=== PATIENT | female | born 1965 | race Caucasian/White ===

== ENCOUNTER 2018-10-06 12:33 | Emergency (ER) | payer BC, OTHER ==
[~2018-10-06] VITALS: Ht 160 cm; Wt 93.9 kg
[~2018-10-06 12:33] MED LIST: ADDERALL 20 MG20 MG PO; ARMOUR THYROID60 MG PO; ATENOLOL50 MG PO; NEURONTIN400 MG PO; OMEPRAZOLE40 MG PO; PRISTIQ ER50 MG PO; SIMVASTATIN20 MG PO; ZYPREXA5 MG PO
--- OUTSIDE RECORDS SUMMARY | 2018-10-06 12:37 | XMS REPORT | Continuity of Care Document ---
Author Author [facility] Interface Address Unknown Phone Unavailable Problems Problem Status Onset Date Classification Date Reported Comments Source ROUTINE Active 04/21/2018 [facility] SCREENING Active 03/21/2018 [facility] UNK Active 04/02/2015 [facility] 727.61 726.10 840.7 [id number]/[id number] 2 Active 04/02/2015 [facility] Bipolar Active Problem 08/30/2015 [facility] Chronic [facility] pain Active Problem 05/19/2018 [facility] GERD (<span ID="[id number]">Confirmed</span>) Active Problem 05/19/2018 [facility] Hypertension Active Problem 05/19/2018 [facility] Hypothyroid Active Problem 05/19/2018 [facility] Rotator cuff tear<sup>1</sup> Active Problem 05/19/2018 right [facility] RT RTC Active [facility] [place] RT SHOUDER SX 04/18/15 Active [facility] [place] RT SHOULDER SX 04/18/15 Active [facility] Medications Medication Details Route Status Patient Instructions Ordering Provider Order Date Source Dexamethasone 8 mg, Route: IVP, ONCE, Dosing Weight 84.091, kg, Start date: 04/18/15 16:25:00, Stop date: 04/18/15 16:25:00 Inactive 04/18/2015 [facility] Reglan 10 mg, Route: IVP, ONCE, Dosing Weight 84.091, kg, Start date: 04/18/15 16:24:00, Stop date: 04/18/15 16:24:00 Inactive 04/18/2015 [facility] Phenergan 6.25 mg, Route: IVPB, ONCE, Dosing Weight 84.091, kg, Start date: 04/18/15 15:48:00, Stop date: 04/18/15 15:48:00 Inactive 04/18/2015 [facility] Acetaminophen 325 MG / Hydrocodone Bitartrate 5 MG Oral Tablet [Felda 5/325] 1 tab, Route: PO, Drug Form: TAB, Dosing Weight 84.091, kg, Q4H, PRN Pain, Start date: 04/18/15 15:46:00, Duration: 30 day, Stop date: 05/18/15 15:45:00 Inactive 04/18/2015 [facility] Naloxone 0.04 mg, Route: IVP, Q2MIN, Dosing Weight 84.091, kg, PRN Narcotic Reversal, Start date: 04/18/15 15:46:00, Duration: 8 doses or times, Stop date: Limited # of times Inactive 04/18/2015 [facility] Flumazenil 0.2 mg, Route: IVP, PRN, Dosing Weight 84.091, kg, PRN Benzodiazepine Reversal, Initial dose, Start date: 04/18/15 15:46:00, Duration: 30 day, Stop date: 05/18/15 15:45:00 Inactive 04/18/2015 [facility] Meperidine 12.5 mg, Route: IVP, Q30Min, Dosing Weight 84.091, kg, PRN Other -See Comment, For shivering, Start date: 04/18/15 15:46:00, Duration: 2 doses or times, Stop date: Limited # of times Inactive 04/18/2015 [facility] Hydromorphone 0.5 mg, Route: IVP, Q5Min, Dosing Weight 84.091, kg, PRN Pain Score 7-10, Start date: 04/18/15 15:46:00, Duration: 4 doses or times, Stop date: Limited # of times Inactive 04/18/2015 [facility] Fentanyl 25 microgram, Route: IVP, Q5Min, Dosing Weight 84.091, kg, PRN Pain Score 4-6, Start date: 04/18/15 15:46:00, Duration: 4 doses or times, Stop date: Limited # of times Inactive 04/18/2015 [facility] Ondansetron 4 mg, Route: IVP, ONCE, Dosing Weight 84.091, kg, PRN Nausea & Vomiting, Start date: 04/18/15 15:46:00 Inactive 04/18/2015 [facility] Acetaminophen 1,000 mg, Route: IVPB, Drug form: INJ, ONCE, Dosing Weight 84.091, kg, PRN Pain Score 1-3, Start date: 04/18/15 15:46:00, Duration: 1 doses or times, Stop date: Limited # of times Inactive 04/18/2015 [facility] Acetaminophen 325 MG / Oxycodone Hydrochloride 5 MG Oral Tablet [Percocet 5/325] 2 tab, Route: PO, Drug Form: TAB, Dosing Weight 84.091, kg, Q4H, PRN Pain Score 1-5, Start date: 04/18/15 15:00:00, Duration: 30 day, Stop date: 05/18/15 14:59:00Notes: Do not exceed 4gm/day of acetaminophen. (Same as: Percocet-5/325) Inactive 04/18/2015 [facility] Zofran 4 mg, 2 mL, Route: IV, Drug form: INJ, Q8H, Dosing Weight 84.091, kg, PRN Nausea, Start date: 04/18/15 15:00:00, Duration: 30 day, Stop date: 05/18/15 14:59:00Notes: (Same as: Zofran) MEDICATION WASTE Product Size: 4 mg Product Wasted: __0_ mg Inactive 04/18/2015 [facility] Morphine 2 mg, 1 mL, Route: IVP, Drug form: INJ, Q3H, Dosing Weight 84.091, kg, PRN Pain Score 1-3, Start date: 04/18/15 15:00:00, Duration: 30 day, Stop date: 05/18/15 14:59:00Notes: (Same as:MORPhine Sulfate) Inactive 04/18/2015 [facility] ropivacaine Dosing: Per Nerve Block Dosing Order, Route: NERVE BLOCK, Start date: 04/18/15 14:20:00 400 mL, Dosing Weight 84.091, kg, Duration: 30 day, Stop date: 05/18/15 14:19:00 Inactive 04/18/2015 [facility] Ancef 2 gm, Route: IVPB, ONCE, Dosing Weight 84.091, kg, Start date: 04/18/15 10:03:00, Duration: 1 doses or times, Stop date: 04/18/15 10:03:00 Inactive 04/18/2015 [facility] Calcium Chloride 0.0014 MEQ/ML / Potassium Chloride 0.004 MEQ/ML / Sodium Chloride 0.103 MEQ/ML / Sodium Lactate 0.028 MEQ/ML Injectable Solution 1,000 mL, Rate: 25 ml/hr, Infuse over: 40 hr, Route: IV, Dosing Weight 84.091 kg, Total Volume: 1,000, Start date: 04/18/15 9:57:00, Duration: 30 day, Stop date: 05/18/15 9:56:00 Inactive 04/18/2015 [facility] Atenolol 50 MG Oral Tablet 50 mg=1 tab, PO, Bedtime, # 30 tab, 0 Refill(s) Active 04/15/2015 [facility] simvastatin 20 mg oral tablet 20 mg=1 tab, PO, Bedtime, # 30 tab, 0 Refill(s) Active 04/15/2015 [facility] olanzapine 15 MG Oral Tablet [Zyprexa] 15 mg=1 tab, PO, Daily, # 30 tab, 0 Refill(s) Active 04/15/2015 [facility] omeprazole 40 mg oral delayed release capsule 40 mg=1 cap, PO, Daily, # 30 cap, 0 Refill(s) Active 04/15/2015 [facility] 24 HR Desvenlafaxine 50 MG Extended Release Tablet [Pristiq] 50 mg=1 tab, PO, Daily, # 30 tab, 0 Refill(s) Active 04/15/2015 [facility] Levothyroxine Sodium 0.137 MG Oral Tablet [Synthroid] 137 microgram=1 tab, PO, Daily, # 30 tab, 0 Refill(s) Active 04/15/2015 [facility] Amphetamine aspartate 5 MG / Amphetamine Sulfate 5 MG / Dextroamphetamine saccharate 5 MG / Dextroamphetamine Sulfate 5 MG Oral Tablet [Adderall] 20 mg=1 tab, PO, Daily, 0 Refill(s) Active 04/15/2015 [facility] Allergies, Adverse Reactions, Alerts Substance Category Reaction Severity Reaction type Status Date Reported Comments Source codeine Assertion Drug allergy Active [facility] Immunizations Immunization Date Given Site Status Last Updated Comments Source Results Order Name Results Value Reference Range Date Interpretation Comments Source Breast Mammo Scrn JAMI incl CAD MA Breast Mammo Scrn JAMI incl CAD MA BILATERAL DIGITAL SCREENING MAMMOGRAM WITH CAD: 05/16/2018 CLINICAL: /Screen. Current study was evaluated with a Computer Aided Detection (CAD) system. COMPARISON:Exam is read without the benefit of comparison films. Patient is unsure and/or cannot remember where and/or when her prior exam(s) was performed. TECHNIQUE: Mammographic views were obtained using digital acquisition. [employer] Version 1.3 was utilized for computer aided detection. FINDINGS: The tissue of both breasts is heterogeneously dense, which could obscure detection of small masses. Benign appearing densities are noted in both breasts. There are benign calcifications and lymph nodes in the right breast. There also are benign calcifications in the left breast. No significant masses, calcifications, or other findings are seen in either breast. IMPRESSION: BENIGN RECOMMENDATION:There is no mammographic evidence of malignancy. A 1 year screening mammogram is recommended.(05/17/2019) SUMMARY: Prior mammograms would be of added benefit to document mcc stability. This aids in establishing benignity. The patient should make additional efforts to locate her prior exams. An addendum will be made if additional films are provided. As the patient has dense breast parenchyma with scattered densities, this could obscure additional abnormalities. The patient would likely benefit from a supplemental screening test such as bilateral ultrasound. This should be discussed with the patient by the referring physician. This exam was interpreted at [id number] for [facility]. Prerna Kee M.D. jt/:05/17/2018 07:48:54 Ship Wirer(s): Melodie Peter [facility] letter sent: BI-RADS 1/2 Dense Mammogram BI-RADS: 2 Benign 05/16/2018 - - Read by: Prerna Kee MD Dictated Date/time: 05/17/18 07:48 Electronically Signed by: Prerna Kee MD 05/17/18 07:48 FINAL REPORT [facility] Bone Density Scan Bone Density Scan BONE DENSITY: HISTORY: Osteoporosis. TECHNIQUE: Dual energy x-ray absorptiometry (DEXA) was done over the lumbar spine and left hip on a [employer] SL scanner. FINDINGS: The total T-score over the lumbar spine is -0.1, consistent with normal bone density. The global T-score over the left hip is 0.6, consistent with normal bone density. The focal T-score over the left femoral neck is -0.7, consistent with normal bone density. The BMD is 0.776 g/sq cm. IMPRESSION: 1. Normal bone density of the lumbar spine. 2. Normal global bone density of the left hip. 3. Normal bone density of the left femoral neck. FOR YOUR INFORMATION: The World Health Organization has established that OSTEOPOROSIS occurs at -2.5 or more standard deviations below peak bone mass (T-score). OSTEOPENIA occurs at -1.0 to -2.5 standard deviations (T-score) below peak bone mass. [id number] 05/16/2018 - - Read by: Nito Reynoso MD Dictated Date/time: 05/16/18 14:14 Electronically Signed by: Nito Reynoso MD 05/16/18 14:15 FINAL REPORT [facility] URINE CHEM U Preg Negative (04/18/15 8:55 AM) Negative 04/18/2015 [facility] Vital Signs Vital Sign Value Date Comments Source Systolic (mm Hg) 113 04/18/2015 [facility] Diastolic (mm Hg) 64 04/18/2015 [facility] Respitory Rate 18 04/18/2015 [facility] Respitory Rate 16 04/18/2015 [facility] Systolic (mm Hg) 120 04/18/2015 [facility] Diastolic (mm Hg) 70 04/18/2015 [facility] Systolic (mm Hg) 120 04/18/2015 [facility] Diastolic (mm Hg) 70 04/18/2015 [facility] Respitory Rate 20 04/18/2015 [facility] Temperature Oral (F) 98.2 F 04/15/2015 [facility] Heart Rate 77 04/15/2015 [facility] Weight 84.091 04/15/2015 [facility] BMI Calculated 32.84 04/15/2015 [facility] Height 160.02 cm 04/15/2015 [facility] Encounters Location Location Details Encounter Type Encounter Number Reason For Visit Attending Provider ADM Date DC Date Status Source [facility] [id number] Adan Frederick 08/23/2014 09/22/2014 [facility] [place] [id number] Adan Frederick 10/04/2014 11/03/2014 [facility] OBS Day Surgery [id number] Nito Vazquez Jr 04/18/2015 04/18/2015 [facility] [place] [facility] [id number] Nito Vazquez Jr 04/22/2015 05/22/2015 [facility] [id number] Nito Vazquez Jr 05/23/2015 06/22/2015 [facility] [place] [id number] Nito Vazquez Jr 07/02/2015 08/01/2015 [facility] [place] [id number] Nito Vazquez Jr 08/15/2015 08/27/2015 [facility] Outpatient [id number] Mariann Matos 05/16/2018 05/17/2018 [facility] Procedures Procedure Code Date Perfomer Comments Source Bilateral tubal ligation [id number] [facility] Excision of cyst [id number] [facility] Bilateral tubal ligation [id number] [facility] Excision of cyst [id number] [facility]
--- OUTSIDE RECORDS SUMMARY | 2018-10-06 12:37 | XMS REPORT | Summary of Care ---
Author Author [facility] Address Unknown Phone Unavailable Encounter HQ Raghav_wendi(FIN) [id number] Date(s): 05/23/15 - 06/21/15 [facility] Discharge Disposition: Home Attending Physician: Nito Dozier MD Vital Signs No data available for this section Problem List Condition Effective Dates Status Health Status Informant Bipolar(Confirmed) Active Chronic back Active pain(Confirmed) GERD Active (gastroesophageal reflux disease)(Confirmed) Hypertension(Confirm Active ed) Hypothyroid(Confirme Active d) Rotator cuff Active tear(Confirmed)1 1right Allergies, Adverse Reactions, Alerts Substance Reaction Severity Status codeine Active Medications No data available for this section Results No data available for this section Immunizations No data available for this section Procedures Procedure Date Related Diagnosis Body Site Bilateral tubal ligation Excision of cyst Social History Social History Type Response Alcohol Current, Type Wine. Frequency: Daily. Previous treatment: None. Alcohol use interferes with work or home: No. Drinks more than intended: No. Others hurt by drinking: No. Household alcohol concerns: No.1 Smoking Status Former smoker; Type: Cigarettes; Previous treatment: None; Ready to change: Yes; Exposure to Tobacco Smoke None; Cigarette Smoking Last 365 Days No; Reg Smoking Cessation Counseling No 11 glass of wine daily Assessment and Plan No data available for this section
--- OUTSIDE RECORDS SUMMARY | 2018-10-06 12:37 | XMS REPORT | Summary of Care ---
Author Organization Unknown Address Unknown Phone Unavailable Encounter HQ Encntr_alias([facility]) [id number] Date(s): 10/04/14 - 11/02/14 [facility] [place] Discharge Disposition: Home Physician Attending: Adan Frederick MD Reason for Visit RT RTC Problem List No data available for this section Allergies, Adverse Reactions, Alerts No data available for this section Medications No data available for this section Medications Administered During Your Visit No data available for this section Immunizations No data available for this section
--- OUTSIDE RECORDS SUMMARY | 2018-10-06 12:38 | XMS REPORT | Summary of Care ---
Author Author [facility] Address Unknown Phone Unavailable Encounter HQ Cobyntr_wendi(FIN) [id number] Date(s): 08/15/15 - 08/27/15 [facility] Discharge Disposition: Home Attending Physician: Nito Dozier [...]
--- OUTSIDE RECORDS SUMMARY | 2018-10-06 12:38 | XMS REPORT | Summary of Care ---
Author Organization Unknown Address Unknown Phone Unavailable Encounter DEJAN Wallace(MIKE) [id number] Date(s): 04/18/15 - 04/18/15 [facility] [address] [place] [address]- [phone] Discharge Disposition: Home Physician Attending: Nito Dozier MD Physician_Referring: Nito Dozier MD Vital Signs 1 2 3 Most recent to oldest [Reference Range]: 160.02 cm (04/15/15 5:29 PM) Height 98.2 DegF (04/15/15 5:29 PM) Temperature Oral [96.4-99.1 DegF] 113/64 mmHg (04/18/15 5:15 PM) 120/70 mmHg (04/18/15 5:00 PM) 120/70 mmHg (04/18/15 4:45 PM) Blood Pressure [90-140/60-90 mmHg] 18 BRMIN (04/18/15 5:15 PM) 16 BRMIN (04/18/15 5:00 PM) 20 BRMIN (04/18/15 4:45 PM) Respiratory Rate [14-20 BRMIN] 77 bpm (04/15/15 5:29 PM) Peripheral Pulse Rate [60-100 bpm] 84.091 kg (04/15/15 5:29 PM) Weight 32.84 m2 (04/15/15 5:29 PM) Body Mass Index Problem List Condition Effective Dates Status Health Status Informant Bipolar(Confirmed) Active Chronic back Active pain(Confirmed) GERD Active (gastroesophageal reflux disease)(Confirmed) Hypertension(Confirm Active ed) Hypothyroid(Confirme Active d) Rotator cuff Active tear(Confirmed)1 1right Allergies, Adverse Reactions, Alerts Substance Reaction Severity Status codeine Active Medications acetaminophen 1,000 mg, Route: IVPB, Drug form: INJ, ONCE, Dosing Weight 84.091, kg, PRN Pain Score 1-3, Start date: 04/18/15 15:46:00, Duration: 1 doses or times, Stop date: Limited # of times Start Date: 04/18/15 Stop Date: 04/18/15 Status: Discontinued Adderall 20 mg oral tablet 20 mg=1 tab, PO, Daily, 0 Refill(s) Start Date: 04/15/15 Status: Ordered Ancef 2 gm, Route: IVPB, ONCE, Dosing Weight 84.091, kg, Start date: 04/18/15 10:03:00 , Duration: 1 doses or times, Stop date: 04/18/15 10:03:00 Start Date: 04/18/15 Stop Date: 04/18/15 Status: Completed atenolol 50 mg oral tablet 50 mg=1 tab, PO, Bedtime, # 30 tab, 0 Refill(s) Start Date: 04/15/15 Status: Ordered dexamethasone 8 mg, Route: IVP, ONCE, Dosing Weight 84.091, kg, Start date: 04/18/15 16:25:00, Stop date: 04/18/15 16:25:00 Start Date: 04/18/15 Stop Date: 04/18/15 Status: Completed fentaNYL 25 microgram, Route: IVP, Q5Min, Dosing Weight 84.091, kg, PRN Pain Score 4-6, S tart date: 04/18/15 15:46:00, Duration: 4 doses or times, Stop date: Limited # o f times Start Date: 04/18/15 Stop Date: 04/18/15 Status: Discontinued flumazenil 0.2 mg, Route: IVP, PRN, Dosing Weight 84.091, kg, PRN Benzodiazepine Reversal, Initial dose, Start date: 04/18/15 15:46:00, Duration: 30 day, Stop date: 15:45:00 Start Date: 04/18/15 Stop Date: 04/18/15 Status: Discontinued hydromorphone 0.5 mg, Route: IVP, Q5Min, Dosing Weight 84.091, kg, PRN Pain Score 7-10, Start date: 04/18/15 15:46:00, Duration: 4 doses or times, Stop date: Limited # of deny es Start Date: 04/18/15 Stop Date: 04/18/15 Status: Discontinued Lactated Ringers Injection IV 1000 mL 1,000 mL, Rate: 25 ml/hr, Infuse over: 40 hr, Route: IV, Dosing Weight 84.091 kg , Total Volume: 1,000, Start date: 04/18/15 9:57:00, Duration: 30 day, Stop date : 05/18/15 9:56:00 Start Date: 04/18/15 Stop Date: 04/18/15 Status: Discontinued meperidine 12.5 mg, Route: IVP, Q30Min, Dosing Weight 84.091, kg, PRN Other -See Comment, F or shivering, Start date: 04/18/15 15:46:00, Duration: 2 doses or times, Stop da te: Limited # of times Start Date: 04/18/15 Stop Date: 04/18/15 Status: Discontinued morphine Sulfate 2 mg, 1 mL, Route: IVP, Drug form: INJ, Q3H, Dosing Weight 84.091, kg, PRN Pain Score 1-3, Start date: 04/18/15 15:00:00, Duration: 30 day, Stop date: 05/18/15 14:59:00 Notes: (Same as:MORPhine Sulfate) Start Date: 04/18/15 Stop Date: 04/18/15 Status: Discontinued naloxone 0.04 mg, Route: IVP, Q2MIN, Dosing Weight 84.091, kg, PRN Narcotic Reversal, Sta rt date: 04/18/15 15:46:00, Duration: 8 doses or times, Stop date: Limited # of times Start Date: 04/18/15 Stop Date: 04/18/15 Status: Discontinued [place] 5/325 oral tablet 1 tab, Route: PO, Drug Form: TAB, Dosing Weight 84.091, kg, Q4H, PRN Pain, Start date: 04/18/15 15:46:00, Duration: 30 day, Stop date: 05/18/15 15:45:00 Start Date: 04/18/15 Stop Date: 04/18/15 Status: Discontinued omeprazole 40 mg oral delayed release capsule 40 mg=1 cap, PO, Daily, # 30 cap, 0 Refill(s) Start Date: 04/15/15 Status: Ordered ondansetron 4 mg, Route: IVP, ONCE, Dosing Weight 84.091, kg, PRN Nausea & Vomiting, Start date: 04/18/15 15:46:00 Start Date: 04/18/15 Stop Date: 04/18/15 Status: Discontinued Percocet 5/325 oral tablet 2 tab, Route: PO, Drug Form: TAB, Dosing Weight 84.091, kg, Q4H, PRN Pain Score 1-5, Start date: 04/18/15 15:00:00, Duration: 30 day, Stop date: 05/18/15 14:59: 00 Notes: Do not exceed 4gm/day of acetaminophen. (Same as: Percocet-5/325) Start Date: 04/18/15 Stop Date: 04/18/15 Status: Discontinued Phenergan 6.25 mg, Route: IVPB, ONCE, Dosing Weight 84.091, kg, Start date: 04/18/15 15:48 :00, Stop date: 04/18/15 15:48:00 Start Date: 04/18/15 Stop Date: 04/18/15 Status: Completed Pristiq 50 mg oral tablet, extended release 50 mg=1 tab, PO, Daily, # 30 tab, 0 Refill(s) Start Date: 04/15/15 Status: Ordered Reglan 10 mg, Route: IVP, ONCE, Dosing Weight 84.091, kg, Start date: 04/18/15 16:24:00 , Stop date: 04/18/15 16:24:00 Start Date: 04/18/15 Stop Date: 04/18/15 Status: Completed ropivacaine 0.2% in NS - site 1 400 mL Dosing: Per Nerve Block Dosing Order, Route: NERVE BLOCK, Start date: 04/18/15 1 4:20:00 400 mL, Dosing Weight 84.091, kg, Duration: 30 day, Stop date: 05/18/15 14:19:00 Start Date: 04/18/15 Stop Date: 04/18/15 Status: Discontinued simvastatin 20 mg oral tablet 20 mg=1 tab, PO, Bedtime, # 30 tab, 0 Refill(s) Start Date: 04/15/15 Status: Ordered Synthroid 137 mcg (0.137 mg) oral tablet 137 microgram=1 tab, PO, Daily, # 30 tab, 0 Refill(s) Start Date: 04/15/15 Status: Ordered Zofran 4 mg, 2 mL, Route: IV, Drug form: INJ, Q8H, Dosing Weight 84.091, kg, PRN Nausea , Start date: 04/18/15 15:00:00, Duration: 30 day, Stop date: 05/18/15 14:59:00 Notes: (Same as: Zofran) MEDICATION WASTE Product Size: 4 mgProduct Was hudson: __0_ mg Start Date: 04/18/15 Stop Date: 04/18/15 Status: Discontinued ZyPREXA 15 mg oral tablet 15 mg=1 tab, PO, Daily, # 30 tab, 0 Refill(s) Start Date: 04/15/15 Status: Ordered Results URINE CHEM Most recent to 1 oldest [Reference Range]: U Preg [Negative] Negative (04/18/15 8:55 AM) Immunizations No data available for this section [...]
--- OUTSIDE RECORDS SUMMARY | 2018-10-06 12:38 | XMS REPORT | Summary of Care ---
Author Organization Unknown Address Unknown Phone Unavailable Encounter HQ [place](MIKE) [id number] Date(s): 04/22/15 - 05/21/15 [facility] Discharge Disposition: Home Physician Attending: Nito Dozier MD Vital Signs No data [...]
--- OUTSIDE RECORDS SUMMARY | 2018-10-06 12:38 | XMS REPORT | Summary of Care ---
Author Author [facility] Organization [facility] Address Unknown Phone Unavailable Encounter HQ Raghav_wendi(FIN) [id number] Date(s): 05/16/18 - 05/16/18 [facility] [address] [place] [address]- Discharge Disposition: Home or Self Care Attending Physician: Mariann Matos MD Referring Physician: Mariann Matos MD Vital Signs No data available for this section Problem List Condition Effective Dates Status Health Status Informant Chronic back Active pain(Confirmed) GERD Active (gastroesophageal reflux disease)(Confirmed) Hypertension(Confirm Active ed) Hypothyroid(Confirme Active d) Rotator cuff Active tear(Confirmed)1 1right Allergies, Adverse Reactions, Alerts Substance Reaction Severity Status codeine Active Medications No data available for this section Results No data available for this section Immunizations No data available for this section Procedures Procedure Date Related Diagnosis Body Site Status Bilateral tubal ligation Completed Excision of cyst Completed Social History Social History Type Response Alcohol [...] Days No; Reg Smoking Cessation Counseling No entered on: 04/18/15 11 glass of wine daily Assessment and Plan No data available for this section
--- OUTSIDE RECORDS SUMMARY | 2018-10-06 12:38 | XMS REPORT | Summary of Care ---
Author Author [facility] Address Unknown Phone Unavailable Encounter HQ Cobyntr_wendi(FIN) [id number] Date(s): 07/02/15 - 07/31/15 [facility] Discharge Disposition: Home Attending Physician: Nito Dozier [...]
[2018-10-06] MEDS ORDERED: ASPIRIN 81 MG CHEW TAB PO ONE (13:00)
[2018-10-06] MEDS ORDERED: METHYLPREDNISOLONE SOD SUCC 125 MG/2ML VIAL IV NR (13:15)
[2018-10-06] MEDS ORDERED: ALBUTEROL/IPRATROPIUM 3 ML NEB NEB ONE (13:15)
[2018-10-06 13:20] LABS: BASOPHILS % 0.3 % (0.0-1.0); EOSINOPHILS # (AUTO) 0.1 (0.0-0.4); HEMATOCRIT 36.6 % (34.2-44.1); HEMOGLOBIN 12.5 g/dL (12.0-16.0); LYMPHOCYTES # (AUTO) 0.8 (1.0-3.2); LYMPHOCYTES % 9.9 % (18.0-39.1); MEAN CORPUSCULAR HEMOGLOBIN 31.7 pg (28-32); MEAN CORPUSCULAR HGB CONC 34.2 g/dL (31-35); MEAN CORPUSCULAR VOLUME 92.9 fL (81-99); MONOCYTES # (AUTO) 0.7 (0.2-0.8); MONOCYTES % 9.4 % (4.4-11.3); NEUTROPHILS # (AUTO) 6.1 (2.1-6.9); PLATELET COUNT 193 x10e3/uL (140-360); RED BLOOD COUNT 3.94 x10e6/uL (3.6-5.1); RED CELL DISTRIBUTION WIDTH 14.5 % (11.7-14.4)
[2018-10-06 13:28] LABS: INR 0.84; PROTHROMBIN TIME 12.3 seconds (11.9-14.5)
[2018-10-06 13:29] LABS: PARTIAL THROMBOPLASTIN TIME 37.1 seconds (23.8-35.5)
[2018-10-06 13:43] LABS: ALANINE AMINOTRANSFERASE 29 IU/L (0-55); ALBUMIN 3.9 g/dL (3.5-5.0); ALBUMIN/GLOBULIN RATIO 1.1 (0.8-2.0); ALKALINE PHOSPHATASE 104 IU/L (40-150); ANION GAP 16.8 mmol/L (8-16); BLOOD UREA NITROGEN 11 mg/dL (7-26); BUN/CREATININE RATIO 13 (6-25); CALCIUM 9.7 mg/dL (8.4-10.2); CARBON DIOXIDE 23 mmol/L (22-29); CHLORIDE 102 mmol/L (98-107); CREATINE KINASE 38 IU/L (29-168); CREATININE, SERUM 0.86 mg/dL (0.57-1.11); EST GLOMERULAR FILTRATION RATE > 60 ML/MIN (60-); GLUCOSE 118 mg/dL (74-118); POTASSIUM 3.8 mmol/L (3.5-5.1); SODIUM 138 mmol/L (136-145)
[2018-10-06 13:53] LABS: INFLUENZAE A&B ANTIGEN (RAPID) NEGATIVE (NEGATIVE); STREPTOCOCCUS GRP A ANTIGEN NEGATIVE (NEGATIVE)
--- NOTE | 2018-10-06 14:31 | Diagnostic Imaging Report ---
EXAMINATION: PA and lateral views of the chest. COMPARISON: None CLINICAL HISTORY: Cough, shortness of breath DISCUSSION: Lines/tubes: None. Lungs: The lungs are well inflated and clear. No pneumonia or pulmonary edema. Pleura: No pleural effusion or pneumothorax. Heart and mediastinum: The cardiomediastinal silhouette is normal. Bones and soft tissues: No acute bony abnormalities. IMPRESSION: No acute cardiopulmonary abnormalities. Signed by: Dr. Geovany Hollingsworth M.D. on 10/06/2018 2:28 PM
[2018-10-06 15:29] LABS: BACTERIA,URINE MANY /HPF; BILIRUBIN,URINE NEGATIVE (NEGATIVE); CLARITY,URINE SL CLOUDY (CLEAR); COLOR,URINE YELLOW (YELLOW); KETONES,URINE NEGATIVE (NEGATIVE); LEUKOCYTE ESTERASE ,URINE NEGATIVE (NEGATIVE); NITRITE,URINE NEGATIVE (NEGATIVE); PROTEIN,URINE DIPSTICK NEGATIVE (NEGATIVE); URINE UROBILINOGEN 0.2 mg/dL (0.2 - 1)
[2018-10-06] MEDS ORDERED: SODIUM CHLORIDE 0.9% 1000ML 1,000 ML IV STA (15:59)
[2018-10-06] MEDS ORDERED: CEFTRIAXONE SOD 1 GM VIAL IM ONE (16:00)
[2018-10-06] MEDS ORDERED: LEVALBUTEROL HCL SOLN NEBU 1.25 MG/3 ML NEB INH ONE (16:00)
[2018-10-06] MEDS ORDERED: IPRATROPIUM BROMIDE 0.02% 2.5 ML NEB NEB ONE (16:00)
[2018-10-06 18:05] VITALS: BP 133/76
== END 2018-10-06 18:17 | disposition home or self-care (01) ==
LOC: ER 12:33
DX: R06.00 Dyspnea, unspecified (principal); R05 Cough; J20.9 Acute bronchitis, unspecified; I10 Essential (primary) hypertension
CPT/HCPCS: 36415; 71046; 80053; 81001; 82550; 82553; 83518; 83880; 84484; 85025; 85610; 85730; 87070; 87400; 93005; 94640 ×2; 99284; J0696; J2930; J7030

== ENCOUNTER → 2020-07-03 | Day surgery (SDC) | payer OTHER ==
[2020-06-27 17:00] LABS: BASOPHILS % 0.7 % (0.0-1.0); EOSINOPHILS # (AUTO) 0.2 (0.0-0.4); EOSINOPHILS % 3.2 % (0.0-6.0); HEMATOCRIT 35.9 % (34.2-44.1); HEMOGLOBIN 11.9 g/dL (12.0-16.0); LYMPHOCYTES # (AUTO) 1.9 (1.0-3.2); LYMPHOCYTES % 31.5 % (18.0-39.1); MEAN CORPUSCULAR HEMOGLOBIN 29.2 pg (28-32); MEAN CORPUSCULAR HGB CONC 33.1 g/dL (31-35); MEAN CORPUSCULAR VOLUME 88.2 fL (81-99); MONOCYTES % 17.4 % (4.4-11.3); NEUTROPHILS # (AUTO) 2.8 (2.1-6.9); PLATELET COUNT 240 x10e3/uL (140-360); RED BLOOD COUNT 4.07 x10e6/uL (3.6-5.1); RED CELL DISTRIBUTION WIDTH 15.3 % (11.7-14.4)
[2020-06-27 17:16] LABS: ANION GAP 14.1 mmol/L (8-16); BLOOD UREA NITROGEN 15 mg/dL (7-26); BUN/CREATININE RATIO 17 (6-25); CALCIUM 9.4 mg/dL (8.4-10.2); CARBON DIOXIDE 26 mmol/L (22-29); CHLORIDE 105 mmol/L (98-107); CREATININE, SERUM 0.88 mg/dL (0.57-1.11); EST GLOMERULAR FILTRATION RATE > 60 ML/MIN (60-); GLUCOSE 89 mg/dL (74-118); POTASSIUM 4.1 mmol/L (3.5-5.1); SODIUM 141 mmol/L (136-145)
[~2020-07-03] MED LIST changes: +ATROPINE SULFATE 1 MG/ML VIAL ONE; +CANDESARTAN-HC1 EAC2 PO; +CEFAZOLIN SOD 1 GM/NS 50ML 100 ML IV ONE; +DEXAMETHASONE PHOS 4MG/ML 5ML MULTIDOSE VIAL ONE; +EPINEPHRINE 1 MG/ML 30ML VIAL ONE; +FENTANYL CITRATE/PF 100MCG/2 ML INJ ONE; +HYDROCODONE/APAP 10MG-325MG TAB ONE; +KETOROLAC TROMETHAMINE 30 MG/ML VIAL ONE; +LIDOCAINE 2% /EPINEPHRINE 20 ML SDV INJ ONE; +LIDOCAINE HCL 2% LOCAL INJ 5 ML SDV VIAL INJ ONE; +MIDAZOLAM HCL 2 MG/2 ML VIAL ONE; +NEOSTIGMINE 1 MG/ML 10ML VIAL ONE; +ONDANSETRON HCL INJ 2MG/ML 2ML 2 MG/ML VIAL ONE; +PHENYLEPHRINE HCL 1% 10 MG/ML VIAL ONE; +PROPOFOL IV EMULSION 10 MG/ML 20 ML VIAL ONE; +ROCURONIUM BROMIDE 10 MG/ML 5ML VIAL IV ONE; +ROPIVACAINE 0.5% 5 MG/ML 30 ML SDV ONE; +SEVOFLURANE INHAL SOLN 250 ML PEN BTL ONE; +SYNTHROID125 MCG PO
[2020-07-03 08:40] VITALS: BP 115/71
--- NOTE | 2020-07-03 13:23 | Operative Report ---
DATE OF PROCEDURE: 07/03/2020 SURGEON: MARK BLANCO MD LOCATION: Place of surgery is [facility]. HISTORY: Ms. Franco is a 54-year-old female who I have been following in the [facility] for ongoing pain of her right shoulder secondary to underlying right shoulder labral tear, rotator cuff tear along with shoulder impingement, AC arthrosis. The patient had elected to forgo any further conservative treatment and proceed on with a diagnostic arthroscopy of her right shoulder. The risks and benefits of surgery have been outlined to her, consisting but not limited to the following: Infection, blood loss, nerve, blood vessel, tendon injury, DVT, ongoing pain. The patient was seen and identified in the preop holding area. The right shoulder was marked by myself. She was given a preoperative regional block, interscalene block per anesthesia and then brought back to the operative suite. Time-out was taken for Ms. Gwendolyn Franco for diagnostic arthroscopy of her right shoulder. All were in agreement including nursing staff, anesthesia and myself. The patient was then given a successful general intubation anesthetic and then placed in the beach chair position with the right shoulder fully exposed. The right shoulder was then sterilely prepped and draped in usual standard fashion. The shoulder was inflated with 30 mL of sterile saline. A 15 Bard-Wayne blade was used to make the initial posterior portal. A blunt trocar was inserted. Upon examination of the anterior compartment, the patient has significant degenerative labral tear from the 12 o'clock down to the 6 o'clock position. The patient had multiple rice loose bodies floating throughout ranging from 2 mm to as large as 5+, likely stemming from the typical surface of the glenoid and humeral head. She had moderate arthritic changes. An anterior working portal as well as a lateral portal was made to assist removal of the rice loose bodies which were removed using arthroscopic grasper and shaver. Upon this time, a 4.0 shaver was then used to debride the type 3 degenerative labral tear down to a stable rim. The patient's villonodular synovitis was also removed and resected using the 4.0 shaver removing the inflamed synovium. Examination of the posterior labrum shows some mild fraying. The labrum was debrided. villonodular synovectomy was also completed removing the villonodular synovitis. The rotator cuff tear was identified. There was a through and through tear with mild retraction. It is also noted that the patient had complete rupture of the biceps tendon. It was not inside the intra-articular joint. Examination of the subacromial space shows some marked arthrosis AC joint with impingement. Through the posterior and lateral portal, an arthroscopic subacromial decompression was carried out, i.e. acromioplasty removing the underlying type 2 spur and improving upon impingement. Attention was then turned to the AC arthrosis and the distal clavicle. The 4.0 shaver and bur were then also used to complete the arthroscopic distal clavicle resection i.e. Trever procedure. Copious irrigation was carried out at the subacromial joint space. All rice loose bodies were removed. Again, the rotator cuff tear was identified. It was marked arthroscopically. A small incision was made directly over the tear. Blunt dissection was carried down. The deltoid muscle was split. Retractors were placed in. Upon probing down to the anterior bicipital groove, I was able to use an Allis clamp tendon retriever and was able to retrieve the stump of the biceps tendon. Upon which time, one Ethibond suture was passed through in a locking stitch and 2 bony tunnels. The proximal biceps tenodesis was carried out close to junction of the bicipital groove. The biceps tenodesis was completed successfully. Attention then redirected back to the rotator cuff tear. One 6.5 Mitek helix anchor was deployed after the punch was completed. The two pairs of sutures were passed through the rotator cuff tendon and the tendon was reattached back to its bony insertion. Copious irrigation was carried out through the entire wound. First, second and final counts found to be correct. One Ethibond suture was then used to close the deep layer with 0 Vicryl, 2-0 Vicryl, skin reapproximated using bryan. The patient was placed in a shoulder abduction immobilizer and subsequently transferred to PACU after successful extubation in stable condition. PREOP DIAGNOSES: 1. Right shoulder labral tear. 2. Right shoulder rotator cuff tear. 3. Right shoulder impingement AC arthrosis. POSTOPERATIVE DIAGNOSES: 1. Right shoulder degenerative type 3 labral tear. 2. Villonodular synovitis of the right shoulder. 3. Multiple rice loose bodies of the right shoulder. 4. Complete rupture of the proximal biceps tendon of the right shoulder. 5. Rotator cuff tear of the right shoulder. 6. Right shoulder impingement, AC arthrosis. PROCEDURES: 1. Diagnostic arthroscopy of the right shoulder with a type 3 labral debridement. 2. Arthroscopic synovectomy for villonodular synovitis of the right shoulder. 3. Removal of rice and loose bodies of the right shoulder to the 5-6 mm in size. 4. Arthroscopic subacromial decompression i.e. acromioplasty. 5. Arthroscopic distal clavicle resection i.e. Trever procedure. 6. Proximal biceps tenodesis of the right proximal biceps tendon. 7. Right shoulder rotator cuff repair and reconstruction with the use of a Mitek 6.5 helix anchor. ANESTHESIA: Regional block with general intubation anesthetic. BLOOD LOSS: Less than 10 mL. SPECIMENS: Rice bodies, synovium, and cartilage. COMPLICATIONS: None. CONDITION: Stable to PACU. Intraoperative findings were as noted above along with moderate arthritic changes to the right shoulder. The patient was seen in PACU. Dressings were clean and dry. Capillary refills were brisk. The intraoperative findings were reviewed and discussed with her and discharge wound care instructions were given. She is discharged home with [place] as well as Valium to assist with spasms and Lunesta with sleep along with Keflex. The patient is to follow up with Orthopedics in 12 to 14 days. Discharge wound care instructions were also discussed with nursing staff. MD GIOVANA BARAJAS/GERTRUDE /[id number] DARRICK
== END | disposition home or self-care (01) ==
LOC: OR 05:00
PROVIDERS: ATTEND Orthopaedic Surgery
DX: M75.101 Unspecified rotator cuff tear or rupture of right shoulder, not specified as traumatic (principal); S43.431A Superior glenoid labrum lesion of right shoulder, initial encounter; S46.211A Strain of muscle, fascia and tendon of other parts of biceps, right arm, initial encounter; M19.011 Primary osteoarthritis, right shoulder; M24.011 Loose body in right shoulder; M75.91 Shoulder lesion, unspecified, right shoulder; G47.33 Obstructive sleep apnea (adult) (pediatric); M05.711 Rheumatoid arthritis with rheumatoid factor of right shoulder without organ or systems involvement; I10 Essential (primary) hypertension; E66.09 Other obesity due to excess calories; X58.XXXA Exposure to other specified factors, initial encounter; Z88.6 Allergy status to analgesic agent; Z01.810 Encounter for preprocedural cardiovascular examination; Z01.812 Encounter for preprocedural laboratory examination; Z11.59 Encounter for screening for other viral diseases; Z68.33 Body mass index [BMI] 33.0-33.9, adult
CPT/HCPCS: 23410; 29824; 29828; 36415; 80048; 85025; 93005; C1713; J0461; J0690; J1885; J2001 ×2; J2250; J2370; J2405; J2704; J2710; J2795; J3010; U0002

== ENCOUNTER → 2022-12-17 | Day surgery (SDC) | payer BC, OTHER ==
[2022-12-15 08:55] LABS: BASOPHILS # (AUTO) 0.1 (0.0-0.1); EOSINOPHILS # (AUTO) 0.2 (0.0-0.4); EOSINOPHILS % 3.3 % (0.0-6.0); HEMATOCRIT 36.6 % (34.2-44.1); HEMOGLOBIN 11.3 g/dL (12.0-16.0); LYMPHOCYTES % 40.3 % (18.0-39.1); MEAN CORPUSCULAR HEMOGLOBIN 29.9 pg (28-32); MEAN CORPUSCULAR HGB CONC 30.9 g/dL (31-35); MEAN CORPUSCULAR VOLUME 96.8 fL (81-99); MONOCYTES # (AUTO) 0.6 (0.2-0.8); MONOCYTES % 12.3 % (4.4-11.3); NEUTROPHILS # (AUTO) 2.1 (2.1-6.9); NEUTROPHILS % 43.1 % (38.7-80.0); PLATELET COUNT 221 x10e3/uL (140-360); RED BLOOD COUNT 3.78 x10e6/uL (3.6-5.1)
[2022-12-15 09:12] LABS: CALCIUM 9.2 mg/dL (8.4-10.2); CREATININE, SERUM 0.8 mg/dL (0.57-1.11)
[~2022-12-17] MED LIST changes: -ATROPINE SULFATE 1 MG/ML VIAL ONE; +BUPIVACAINE HCL 0.5% INJ 30 ML VIAL INJ ONE; -CEFAZOLIN SOD 1 GM/NS 50ML 100 ML IV ONE; +CEFAZOLIN SODIUM 2 GM ONE; -DEXAMETHASONE PHOS 4MG/ML 5ML MULTIDOSE VIAL ONE; +DEXAMETHASONE SOD PHOS INJ 4 MG/ML SDV ONE; -EPINEPHRINE 1 MG/ML 30ML VIAL ONE; +FAMOTIDINE 20 MG/2 ML VIAL IV ONE; -HYDROCODONE/APAP 10MG-325MG TAB ONE; -KETOROLAC TROMETHAMINE 30 MG/ML VIAL ONE; -LIDOCAINE 2% /EPINEPHRINE 20 ML SDV INJ ONE; +PANTOPRAZOLE SO20 MG PO; -PHENYLEPHRINE HCL 1% 10 MG/ML VIAL ONE; +POVIDONE IODINE 0.05% 0.05 % ML PO ONE; -ROCURONIUM BROMIDE 10 MG/ML 5ML VIAL IV ONE; -ROPIVACAINE 0.5% 5 MG/ML 30 ML SDV ONE
[2022-12-17 11:02] VITALS: BP 124/81
== END | disposition home or self-care (01) ==
LOC: OR 07:02
PROVIDERS: ATTEND Podiatrist Foot Surgery
DX: M20.12 Hallux valgus (acquired), left foot (principal); Z88.6 Allergy status to analgesic agent; Z01.810 Encounter for preprocedural cardiovascular examination; Z01.812 Encounter for preprocedural laboratory examination; Z01.818 Encounter for other preprocedural examination; Z79.899 Other long term (current) drug therapy
CPT/HCPCS: 28296; 36415; 71046; 80048; 85025; 93005; J1100; J2001; J2250; J2405; J2704; J2710; J3010; 76000; C1713

== ENCOUNTER → 2023-01-21 | Day surgery (SDC) | payer BC, OTHER ==
[~2023-01-21] MED LIST changes: -FAMOTIDINE 20 MG/2 ML VIAL IV ONE; +KETOROLAC TROMETHAMINE 30 MG/ML VIAL ONE; -NEOSTIGMINE 1 MG/ML 10ML VIAL ONE
[2023-01-21 08:19] LABS: BASOPHILS % 0.8 % (0.0-1.0); EOSINOPHILS # (AUTO) 0.1 (0.0-0.4); EOSINOPHILS % 2.9 % (0.0-6.0); HEMATOCRIT 33.5 % (34.2-44.1); HEMOGLOBIN 11.1 g/dL (12.0-16.0); LYMPHOCYTES # (AUTO) 1.9 (1.0-3.2); LYMPHOCYTES % 39.9 % (18.0-39.1); MEAN CORPUSCULAR HEMOGLOBIN 29.7 pg (28-32); MEAN CORPUSCULAR HGB CONC 33.1 g/dL (31-35); MEAN CORPUSCULAR VOLUME 89.6 fL (81-99); MONOCYTES # (AUTO) 0.6 (0.2-0.8); MONOCYTES % 11.3 % (4.4-11.3); NEUTROPHILS # (AUTO) 2.2 (2.1-6.9); NEUTROPHILS % 44.9 % (38.7-80.0); PLATELET COUNT 185 x10e3/uL (140-360); RED BLOOD COUNT 3.74 x10e6/uL (3.6-5.1); RED CELL DISTRIBUTION WIDTH 12.6 % (11.7-14.4)
[2023-01-21 08:39] LABS: ANION GAP 11.6 mmol/L (8-16); CALCIUM 9.5 mg/dL (8.4-10.2); CREATININE, SERUM 0.69 mg/dL (0.57-1.11); POTASSIUM 3.6 mmol/L (3.5-5.1)
[2023-01-21 12:20] VITALS: BP 125/70
== END | disposition home or self-care (01) ==
LOC: OR 06:56
PROVIDERS: ATTEND Podiatrist Foot Surgery
DX: M20.11 Hallux valgus (acquired), right foot (principal); G47.33 Obstructive sleep apnea (adult) (pediatric); I10 Essential (primary) hypertension; E03.9 Hypothyroidism, unspecified; K21.9 Gastro-esophageal reflux disease without esophagitis; G89.29 Other chronic pain; F90.9 Attention-deficit hyperactivity disorder, unspecified type; F32.A Depression, unspecified; Z88.6 Allergy status to analgesic agent; Z79.899 Other long term (current) drug therapy
CPT/HCPCS: 28296; 36415; 71046; 80048; 85025; 93005; C1713 ×5; J1100; J1885; J2001; J2250; J2405; J2704; J3010; 76000